=== PATIENT | female | born 1945 | race Caucasian/White ===

== ENCOUNTER → 2016-09-21 | Outpatient (CLI) | payer MEDICARE, OTHER ==
[2016-09-21 12:51] VITALS: BP 146/83
== END ==
LOC: MHUC 10:09
PROVIDERS: ATTEND Physician Assistant
DX: H66.001 Acute suppurative otitis media without spontaneous rupture of ear drum, right ear (principal); J32.0 Chronic maxillary sinusitis
CPT/HCPCS: 99213